=== PATIENT | female | born 1945 | race Caucasian/White ===

== ENCOUNTER → 2018-02-07 07:57 | Outpatient (CLI) | payer MEDICARE, OTHER ==
[2013-07-03 10:17] VITALS: BMI 31.0
--- NOTE | ~2018-02-07 | ST ---
PATIENT:LISY SILVESTRE MEDICAL RECORD: [id number] SEX: F LOCATION:[facility] ORDER #: ADMISSION DATE: 02/07/18 AGE OF PATIENT: 72 REFERRING PHYSICIAN: INTERPRETING PHYSICIAN: MARIANNE BE MD REFERRING PHYSICIAN: Luciano Wyatt MD TECHNOLOGIST: SREE Clinton /RT Tl (N) CLINICIAN: Eryn Adams RN CLINICAL INDICATIONS: 1. Angina. 2. Hypertension. 3. Hyperlipidemia. PHARMACOLOGIC STRESS PROCEDURE: 1. The patient performed a chemical stress test at rest receiving 0.4 mg Lexiscan by rapid IV injection over 10-15 seconds. 2. This was followed by 5 nil of normal saline both administered by above Clinician. 3. The tracer was administered IV 10-20 seconds post saline flush per protocol by Technologist. 4. The heart rate was 57 at baseline and was 94 at peak infusion. 5. The blood pressure response was normal B/P was 140/79 at baseline, 134/71 at peak infusion. 6. The patient bad no complaints of angina or anginal equivalent discomfort. 7. The patient had no complaints of shortness of breath following injection of Lexiscan. 8. No significant arrhythmias were observed. 9. The electrocardiogram demonstrated no ST changes suggestive of ischemia. 10. The electrocardiogram demonstrated a normal response to Lexiscan. 11. Normal response to Lexiscan pharmacological stress testing. REST STUDY: DATE: 02/07/18 HOUR: 08:25 ACTIVITY: 9.3 mCi RADIOISOTOPE: Cardiolite 99m Tc VOLUME: 0.6 nil METHOD OF ADMIN: IV SCAN STARTED: (hour) 09:30 STRESS STUDY: DATE: 02/07/18 HOUR: 09:45 ACTIVITY: 30.1 mCi RADIOISOTOPE: Cardiolite 99m Tc VOLUME: 0.6 ml METHOD OF ADMIN: IV SCAN STARTED: (hour) 11:00 GATED IMAGING: Gated SPECT reveals a preserved ejection fraction of 73% with good wall motion, thickening, and brightening throughout all segments. SPECT: SPECT imaging was performed using Cardiolite as the myocardial perfusion imaging agent. There is homogeneous uptake throughout all segments but no evidence of inducible ischemia or previous infarction. CARDIAC STRESS TEST [id number] LISY SILVESTRE OVERALL IMPRESSION: 1. This is a normal nuclear stress test with no evidence of inducible ischemia or previous infarction. 2. Gated SPECT reveals a preserved ejection fraction of 69%. 3. In this patient with ongoing symptomatology, the current scan has a law likelihood of hemodynamically significant coronary artery disease. 4. Would evaluate noncardiac etiology chest discomfort. MARIANNE BE MD at 1138 CC: [id number] DICTATION DATE: 02/07/18 3338 MAPPING EDITOR: DM 02/09/18 0932 DEP CLI 02/07/18 [facility] [address] [place] [address]
[~2018-02-07 07:57] MED LIST: ASPIRIN 81 MG E81 MG PO; ASPIRIN81 MG PO; DETROL LA2 MG; ESTRACE 0.5 MG0.5 MG PO; FOSAMAX5 MG; GLUCOPHAGE500 MG PO; LIPITOR20 MG PO; PLAVIX75 MG PO; PREMARIN0.3 MG PO; PROPRANOLOL HCL80 MG PO; SYNTHROID25 MCG PO
== END | disposition home or self-care (01) ==
LOC: D.HCCARDIO 07:57
DX: I20.9 Angina pectoris, unspecified (principal)